=== PATIENT | male | born 2005 | race Caucasian/White ===

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

== ENCOUNTER 2025-01-10 13:10 | Emergency (ER) | payer OTHER, SELFPAY ==
[2025-01-10] MEDS ORDERED: Ibuprofen 800 MG TAB ONE (13:36)
[2025-01-10] MEDS ORDERED: Lidocaine 1% PF 5 ML VIAL ONE (13:36)
[2025-01-10] MEDS ORDERED: Rabies Immune Globulin/PF 300 UNITS/ML VIAL ONE ×2 (13:37→13:53)
[2025-01-10] MEDS ORDERED: Rabies Vaccine Human 2.5 UNITS VIAL ONE (13:37)
== END 2025-01-10 14:40 | disposition home or self-care (01) ==
LOC: BURERS 13:10
DX: S61.451A Open bite of right hand, initial encounter (principal); F17.290 Nicotine dependence, other tobacco product, uncomplicated; W54.0XXA Bitten by dog, initial encounter
CPT/HCPCS: 90375; 90471; 90675; 90715; 96372